=== PATIENT | female | born 1995 | race African-American/Black ===

== ENCOUNTER 2023-07-02 13:35 | Emergency (ER) | payer MEDICAID ==
[~2023-07-02] VITALS: Ht 152.4 cm; Wt 41.7 kg
[2023-07-02] MEDS ORDERED: METR500T PO (14:00)
[2023-07-02] MEDS ORDERED: DOXY100C5 PO (14:00)
[2023-07-02] MEDS ORDERED: FLUC200T PO (14:00)
[2023-07-02 14:28] VITALS: BP 108/80; O2SAT 99
[2023-07-02 15:29] LABS: *URINE HCG, QUAL NEGATIVE (NEGATIVE)
[2023-07-04 07:06] LABS: *TRIC.VAG. NAA Negative (Negative)
[2023-07-04 15:06] LABS: *CHLAMYDIA NAA Negative (Negative); *GC NAA Negative (Negative)
== END 2023-07-02 14:10 | disposition home or self-care (01) ==
LOC: ER 13:35
DX: N71.9 Inflammatory disease of uterus, unspecified (principal); B37.31 Acute candidiasis of vulva and vagina; Z79.2 Long term (current) use of antibiotics; Z79.899 Other long term (current) drug therapy
CPT/HCPCS: 84703; 87491; A4663